=== PATIENT | male | born 2000 | race Caucasian/White ===

== ENCOUNTER 2024-07-07 06:08 | Outpatient (REF) | payer OTHER, SELFPAY ==
--- NOTE | ~2024-07-07 | US_ITS ---
EXAMINATION: US ABDOMEN LIMITED HISTORY: H/O periumbilcal hernia repair, feels return of symptoms TECHNIQUE: Real-time grayscale ultrasound imaging of the periumbilical region was performed and images were reviewed. COMPARISON: There are no prior studies for comparison. FINDINGS: A possible small fascial defect is noted in the periumbilical region. Evaluation is limited due to shadowing from the umbilicus itself. US/US abdomen limited IMPRESSION: Possible small fascial defect in the periumbilical region. If there remains clinical concern for a recurrent hernia, CT is recommended. Electronically signed by: Josesito Scherer MD 07/07/2024 09:49 AM EDT
== END 2024-07-07 06:09 | disposition home or self-care (01) ==
LOC: HO.UMASIMG 06:08
PROVIDERS: Visit Provider Family Medicine
DX: R10.9 Unspecified abdominal pain (principal); M25.552 Pain in left hip
CPT/HCPCS: 76705

== ENCOUNTER → 2024-07-07 09:00 | Outpatient (BNV) | payer OTHER, SELFPAY | PROVIDERS: Visit Provider Radiology Diagnostic Radiology | DX: Z87.19 Personal history of other diseases of the digestive system (principal) | CPT/HCPCS: 76705 ==